=== PATIENT | male | born 1960 | race Caucasian/White ===

== ENCOUNTER → 2021-09-17 13:51 | Outpatient (BNVA) | payer OTHER, SELFPAY | PROVIDERS: Visit Provider Urology | DX: N32.0 Bladder-neck obstruction (principal); N52.9 Male erectile dysfunction, unspecified; N40.1 Benign prostatic hyperplasia with lower urinary tract symptoms; N13.8 Other obstructive and reflux uropathy; R35.1 Nocturia; E78.5 Hyperlipidemia, unspecified; I10 Essential (primary) hypertension; E78.00 Pure hypercholesterolemia, unspecified; Z79.899 Other long term (current) drug therapy | CPT/HCPCS: 99212 ==

== ENCOUNTER 2022-09-15 14:47 | Outpatient (REF) | payer OTHER, SELFPAY ==
[2022-09-15 16:14] LABS: Prostate Specific Antigen 0.33 ng/mL (<0.05-4.0)
== END 2022-09-15 14:48 | disposition home or self-care (01) ==
LOC: HO.LAB 14:47
PROVIDERS: PCP Internal Medicine Geriatric Medicine; Visit Provider Urology
DX: N40.1 Benign prostatic hyperplasia with lower urinary tract symptoms (principal); N13.8 Other obstructive and reflux uropathy; N32.0 Bladder-neck obstruction; Z12.5 Encounter for screening for malignant neoplasm of prostate
CPT/HCPCS: 36415; 84153

== ENCOUNTER → 2022-09-21 13:20 | Outpatient (BNVA) | payer OTHER, SELFPAY | PROVIDERS: Visit Provider Urology | DX: N32.0 Bladder-neck obstruction (principal); N52.9 Male erectile dysfunction, unspecified; Z79.899 Other long term (current) drug therapy | CPT/HCPCS: 51798; 99212 ==

== ENCOUNTER 2023-09-12 12:04 | Outpatient (REF) | payer OTHER, SELFPAY ==
[2023-09-12 14:07] LABS: Anion Gap 11 (12-20); Blood Urea Nitrogen 15 mg/dL (9-16); Calcium 9.3 mg/dL (8.4-10.2); Carbon Dioxide 28 mmol/L (22-29); Chloride 103 mmol/L (96-108); Estimated Glomerular Filt Rate > 60; Glucose Random 104 mg/dL (60-115); Sodium 138 mmol/L (135-145)
[2023-09-18 08:40] LABS: Alphahydroxytriazolam, GCMS Ur NEGATIVE; Alprazolam, GCMS Urine NEGATIVE; Lorazepam GCMS Urine NEGATIVE; Nordiazepam, GCMS Urine NEGATIVE; Oxazepam, GCMS Urine NEGATIVE; Temazepam, GCMS Urine NEGATIVE
[2023-09-18 08:41] LABS: Alphahydroxymidazolam,GCMS Ur NEGATIVE; Flurazepam Metabolite,GCMS Ur NEGATIVE
== END 2023-09-12 12:05 | disposition home or self-care (01) ==
LOC: HO.HHCL 12:04
PROVIDERS: Visit Provider Internal Medicine Geriatric Medicine
DX: F41.9 Anxiety disorder, unspecified (principal); I10 Essential (primary) hypertension
CPT/HCPCS: 36415; 80048; 80346

== ENCOUNTER 2023-09-20 11:29 | Outpatient (AMB) | payer OTHER, SELFPAY ==
--- NOTE | 2023-09-20 11:29 | MHC.OFFVIS ---
Intake Intake Visit Reasons: 1Y PSA(psa?) Intake Note: Sánchez is a 63 year old male who presnets today VIA Telephone for a one year follow up. Allergies No Known Allergies Allergy (Verified 09/20/23 11:31) Medication List - Last Reconciled 09/20/23 by Ho Levy MD albuterol sulfate 90 mcg/actuation 2 puffs PO Q4-6H PRN aspirin 81 mg PO DAILY clonazepam 0.5 - 1 mg PO BID PRN fluticasone propionate 50 mcg/actuation 1 spray intranasal DAILY fluticasone propionate 220 mcg/actuation (Flovent HFA) 1 puff inhalation BID lisinopril 20 mg PO DAILY lisinopril 10 mg PO DAILY metoprolol tartrate 25 mg PO BID mirtazapine 45 mg PO BEDTIME oxycodone 5 mg PO Q4-6H PRN simvastatin 40 mg PO QPM tadalafil 20 mg PO ONCE PRN 30 days umeclidinium-vilanterol 62.5-25 mcg/actuation (Anoro Ellipta) 1 ea PO DAILY zolpidem 10 mg PO BEDTIME HPI HPI Comments History of Present Illness Details Patricia is a very pleasant male. They are seen for the following urologic conditions. - erectile dysfunction - bladder outlet obstruction Telemedicine Evaluation 15 min Consultation [employer] Video attempted Continues to respond well to ED medications Uses 20 mg tadalafil as needed Refill provided Yearly follow-up Erectile dysfunction:? Symptoms have been present for/since?years ago.? Procedure(s)/Diagnosis causing dysfunction include?a proctocolectomy.? Medications include(s)?Viagra 50 mg. Allows full rigid erections adequate for vaginal penetration And orgasm..? Recent labs included?a PSA (prostate-specific antigen) last 2014 0.3 ?01/14 0.8, 09/20 0.3 ? The last follow-up?was a year ago.? Current symptoms include?trouble sustaining an erection, trouble getting an erection BRUNO 25 with viagra.? Severity of the symptoms?is moderate.? Has associated dyslipidemia and hypertension. Denies stresses, and decreased libido, CVA, depression, diabetes, smoking. [facility] Medical History High blood cholesterol Chronic low back pain HTN (hypertension) Hyperlipidemia Bladder outlet obstruction Family history of breast cancer in female Nocturia Weak urinary stream Erectile dysfunction Surgical History History of surgery Review of Systems Const All systems reviewed & are unremarkable except as noted in HPI and below Reports no additional complaints Resp Reports no additional complaints GI Reports no additional complaints Reports as per HPI Musc Reports no additional complaints Physical Exam Telemedicine evaluation Appropriate responses Regular breathing rate and rhythm HEENT Head: Yes normal to inspection Ears: hearing grossly normal bilaterally Eyes General: appearance normal, both eyes and all related structures Neck Neck: Yes normal visual inspection Chest Chest palpation & inspection: normal inspection of the chest Resp Effort & Inspection: normal respiratory effort and able to speak in complete sentences Assessment & Plan Assessment & Plan (1) Erectile dysfunction: Code(s): N52.9 - Male erectile dysfunction, unspecified Qualifiers: Erectile dysfunction type: post-procedural Post-procedural erectile dysfunction type: other Qualified Code(s): N52.39 - Other and unspecified postprocedural erectile dysfunction (2) Bladder outlet obstruction: Code(s): N32.0 - Bladder-neck obstruction Plan Twelve month follow-up Medications: Changed From tadalafil administer approximately 30min before sexual activity; do not use more than 1 dose per 24hrs 10 mg (1/2 x 20 mg) PO ONCE PRN 30 tabs 2RF sexual activity 30 days N52.9 - Male erectile dysfunction, unspecified To tadalafil administer approximately 30min before sexual activity; do not use more than 1 dose per 24hrs 20 mg PO ONCE PRN 30 tabs 1RF sexual activity 30 days N52.9 - Male erectile dysfunction, unspecified Patient Instructions: Imaging studies, laboratory and physical exam results were discussed and reviewed in detail. No major barriers to patient understanding were identified. An opportunity to ask questions regarding the treatment plan was provided. All questions were answered. The patient expressed understanding and agreement with the above treatment plan. The patient is aware they should contact our office by phone for worsening of their current condition or the appearance of new urologic symptoms. Compliance is encouraged with any medications and followup testing that is ordered. It is a privilege to participate in the urologic care of your patient. If you have any questions or concerns regarding treatment for the above conditions, or other urologic issues, please do not hesitate to contact me. The office telephone contact is [phone]. This note is constructed using voice recognition software. While every effort has been made to ensure accuracy associate professor of theology errors may have been included. Yours sincerely, Dr Ho Levy MD, [facility] - Urology Providers of Expert, Compassionate Care for the Genitourinary System Telehealth Telehealth Location of provider rendering services: practice address Location of patient: address on file Patient Identification confirmed using: Name, : Yes Telehealth method: video Patient verbally consented to treatment: Yes Patient verbally consented to billing insurance company: Yes Patient informed of any privacy concerns related to visit: Yes Coding Level of Care Code Tele Est Pt Level 4 (09522) Diagnoses Other post-procedural erectile dysfunction N52.39 Erectile dysfunction type: post-procedural Post-procedural erectile dysfunction type: other Bladder outlet obstruction N32.0
== END 2023-09-20 11:55 | disposition home or self-care (01) ==
LOC: HO.HUSH 11:29
PROVIDERS: Visit Provider Urology
DX: N52.39 Other and unspecified postprocedural erectile dysfunction (principal); N32.0 Bladder-neck obstruction
CPT/HCPCS: 99213

== ENCOUNTER → 2023-09-20 11:29 | Outpatient (BNVA) | payer OTHER, SELFPAY | PROVIDERS: Visit Provider Urology ==

== ENCOUNTER 2023-12-22 08:56 | Outpatient (REF) | payer OTHER, SELFPAY ==
[2023-12-22 12:08] LABS: Alanine Aminotransferase 13 U/L (0-40); Albumin Level 4.4 g/dL (3.5-5.0); Alkaline Phosphatase 79 U/L (39-117); Anion Gap 14 (12-20); Aspartate Amino Transferase 24 U/L (5-37); Bilirubin Total 1.4 mg/dL (0.0-1.0); Blood Urea Nitrogen 15 mg/dL (9-16); Calcium 9.8 mg/dL (8.4-10.2); Carbon Dioxide 28 mmol/L (22-29); Chloride 105 mmol/L (96-108); Cholesterol 165 mg/dL (<200); Estimated Glomerular Filt Rate > 60; Glucose Random 95 mg/dL (60-115); HDL Cholesterol 51 mg/dL (>40); LDL Cholesterol Calculated 102 mg/dL (<100); Potassium 4.4 mmol/L (3.3-5.1); Sodium 143 mmol/L (135-145); Triglycerides 63 mg/dL (<150)
== END 2023-12-22 08:57 | disposition home or self-care (01) ==
LOC: HO.HHCL 08:56
PROVIDERS: Visit Provider Internal Medicine Geriatric Medicine
DX: Z79.899 Other long term (current) drug therapy (principal)
CPT/HCPCS: 36415; 80053; 80061

== ENCOUNTER 2024-02-29 12:10 | Outpatient (REF) | payer OTHER, SELFPAY ==
[2024-02-29 13:03] LABS: MANUAL DIFF FLAG NO
[2024-02-29 13:22] LABS: Basophils Percent Auto 0.4 % (0-2); Eosinophils Absolute Auto 0.1 X10*3/uL (0.0-0.4); Eosinophils Percent Auto 2.1 % (0-4); Hematocrit 42.8 % (42.0-52.0); Hemoglobin 14.5 g/dl (14.0-18.0); Imm Gran Abs Auto 0.01 X10*3/uL (0.00-0.03); Imm Gran Pct Auto 0.1 % (0.0-0.4); Lymphocytes Absolute Auto 1.5 X10*3/uL (1.2-4.9); Lymphocytes Percent Auto 21.8 % (20-40); Mean Corpuscular HGB Conc 33.9 g/dl (31.0-36.0); Mean Corpuscular Hemoglobin 32.3 pg (27.0-33.0); Mean Corpuscular Volume 95.3 fL (80.0-98.0); Monocytes Absolute Auto 0.5 X10*3/uL (0.1-1.2); Monocytes Percent Auto 7.5 % (2-11); Neutrophils Absolute Auto 4.6 x10*3/uL (2.0-8.3); Neutrophils Percent Auto 68.1 % (45-73); Platelet Count 326 X10*3/uL (160-400); Red Blood Count 4.49 X10*6/uL (4.60-5.80); Red Cell Distribution Width 11.3 % (11.0-16.0); White Blood Count 6.8 X10*3/uL (4.8-10.8)
== END 2024-02-29 12:11 | disposition home or self-care (01) ==
LOC: HO.HHCL 12:10
PROVIDERS: Visit Provider Internal Medicine
DX: S82.892A Other fracture of left lower leg, initial encounter for closed fracture (principal)
CPT/HCPCS: 36415; 85025

== ENCOUNTER 2024-07-22 10:00 | Outpatient (RCR) | payer OTHER, SELFPAY | END 2024-11-27 09:36 | disposition home or self-care (01) | LOC: HO.PTCHIC 10:00 | PROVIDERS: PCP Internal Medicine Geriatric Medicine; Visit Provider Internal Medicine Geriatric Medicine | DX: M25.572 Pain in left ankle and joints of left foot (principal); Z87.81 Personal history of (healed) traumatic fracture | CPT/HCPCS: 97110; 97112; 97162 ==

== ENCOUNTER → 2024-12-06 13:10 | Outpatient (AMB) | payer OTHER, SELFPAY | END | disposition home or self-care (01) | PROVIDERS: PCP Internal Medicine Geriatric Medicine; Visit Provider Urology | CPT/HCPCS: 99214 ==

== ENCOUNTER → 2024-12-06 13:10 | Outpatient (BNVA) | payer OTHER, SELFPAY | PROVIDERS: PCP Internal Medicine Geriatric Medicine; Visit Provider Urology | DX: N52.39 Other and unspecified postprocedural erectile dysfunction (principal); N32.0 Bladder-neck obstruction | CPT/HCPCS: 99212 ==

== ENCOUNTER 2025-03-07 13:09 | Outpatient (AMB) | payer OTHER, SELFPAY ==
--- NOTE | 2025-03-07 13:10 | MHC.OFFVIS ---
Intake Visit Reasons: 3m Intake Note: Patient is present for 3M F/U Urology Medication:TADALAFIL Antibiotic Allergy:NONE Blood Thinner:ASPIRIN Sub Assembly Team Worker Required: No Allergies No Known Allergies Allergy (Verified 03/07/25 13:10) HPI Comments Details: Patricia is a very pleasant male. They are seen for the following urologic conditions. - erectile dysfunction - bladder outlet obstruction Telemedicine Evaluation 15 min Consultation [employer] Video Follow-up from three-month trial of daily tadalafil Significant improvement in erectile function Like to continue daily medication with on demand Prescriptions provided Medication also proved helpful with bladder stabilization 12 month follow-up office Erectile dysfunction:? Symptoms have been present for/since?years ago.? Procedure(s)/Diagnosis causing dysfunction include?a proctocolectomy.? Medications include(s)?Viagra 50 mg. Allows full rigid erections adequate for vaginal penetration And orgasm..? Recent labs included?a PSA (prostate-specific antigen) last 2014 0.3 ?- 01/14 0.8, 09/20 0.3 ? The last follow-up?was a year ago.? Current symptoms include?trouble sustaining an erection, trouble getting an erection BRUNO 25 with viagra.? Severity of the symptoms?is moderate.? Has associated dyslipidemia and hypertension. Denies stresses, and decreased libido, CVA, depression, diabetes, smoking. [facility] Medical History High blood cholesterol Chronic low back pain HTN (hypertension) Hyperlipidemia Bladder outlet obstruction Family history of breast cancer in female Nocturia Weak urinary stream Erectile dysfunction Surgical History History of surgery Review of Systems Const All systems reviewed & are unremarkable except as noted in HPI and below Reports no additional complaints Resp Reports no additional complaints GI Reports no additional complaints Reports as per HPI Musc Reports no additional complaints Physical Exam Telemedicine evaluation Appropriate responses Regular breathing rate and rhythm HEENT Head: Yes normal to inspection Ears: hearing grossly normal bilaterally Eyes General: appearance normal, both eyes and all related structures Neck Neck: Yes normal visual inspection Chest Chest palpation & inspection: normal inspection of the chest Resp Effort & Inspection: normal respiratory effort and able to speak in complete sentences Telehealth Telehealth Location of provider rendering services: practice address Location of patient: address on file Patient Identification confirmed using: Name, : Yes Telehealth method: voice only Patient verbally consented to treatment: Yes Patient verbally consented to billing insurance company: Yes Patient informed of any privacy concerns related to visit: Yes Assessment & Plan Assessment & Plan (1) Erectile dysfunction: Code(s): N52.9 - Male erectile dysfunction, unspecified Category: Medical Qualifiers: Erectile dysfunction type: post-procedural Post-procedural erectile dysfunction type: other Qualified Code(s): N52.39 - Other and unspecified postprocedural erectile dysfunction (2) Bladder outlet obstruction: Code(s): N32.0 - Bladder-neck obstruction Category: Medical Plan Continue PD 5 Medications: Refilled tadalafil 5 mg PO DAILY 90 days 90 tabs 3RF Bladder instability N32.0 - Bladder-neck obstruction tadalafil administer approximately 30min before sexual activity; do not use more than 1 dose per 24hrs 20 mg PO ONCE 30 days PRN 30 tabs 1RF sexual activity N52.9 - Male erectile dysfunction, unspecified Patient Instructions: This note is constructed using voice recognition software. While every effort has been made to ensure accuracy clinical social worker errors may have been included. Imaging studies, laboratory and physical exam results were discussed and reviewed in detail. No major barriers to patient understanding were identified. An opportunity to ask questions regarding the treatment plan was provided. All questions were answered. The patient expressed understanding and agreement with the above treatment plan. The patient is aware they should contact our office by phone for worsening of their current condition or the appearance of new urologic symptoms. Compliance is encouraged with any medications and followup testing that is ordered. It is a privilege to participate in the urologic care of your patient. If you have any questions or concerns regarding treatment for the above conditions, or other urologic issues, please do not hesitate to contact me. The office telephone contact is [phone]. Sincerely, Dr Ho Levy MD, [facility] - Urology Compassionate Specialist Care for the Genitourinary System Coding Level of Care Code Tele Est Pt Level 3 (28453) Diagnoses Other post-procedural erectile dysfunction N52.39 Erectile dysfunction type: post-procedural Post-procedural erectile dysfunction type: other Bladder outlet obstruction N32.0
--- OUTSIDE RECORDS SUMMARY | 2025-03-07 13:13 | XMS_ITS | Referral Summary ---
Author Organization [facility] Address [address] [place] [address] Care Team Providers Care Courtesy Van Driver Name Role Phone Name, Leodan Primary Care Provider [phone] Allergies No known active allergies Medications clonazePAM (KlonoPIN) 1 mg tablet 08/21/2023 Active zolpidem (AMBIEN) 10 mg tablet 08/21/2023 Active cholecalciferol (VITAMIN D3) 2,000 unit tablet 50 mcg. 06/28/2023 Active aspirin 81 mg EC tablet 08/12/2023 Active oxyCODONE IR (ROXICODONE) 5 mg tablet 08/10/2023 Active fluticasone propionate (FLONASE) 50 mcg/actuation nasal spray 08/12/2023 Active lisinopriL (PRINIVIL,ZESTRI L) 20 mg tablet 08/12/2023 Act jhoana albuterol (PROAIR HFA,VENTOLIN HFA) 90 mcg inhaler SMARTSI Puff(s) By Mouth Every 4-6 Hours PRN 06/29/2023 Active metoprolol tartrate (LOPRESSOR) 25 mg tablet SMARTSI Tablet(s) By Mouth Twice Daily 07/06/2023 Active sildenafiL (VIAGRA) 100 mg tablet 100 mg. 05/12/2023 Active simvastatin (ZOCOR) 40 mg tablet 08/12/2023 Active terbinafine (LamiSIL) 250 mg tablet 03/06/2023 Active mirtazapine (REMERON) 45 mg tablet SMARTSI Tablet(s) By Mouth Every Night 02/01/2023 Active simvastatin 20 mg/5 mL (4 mg/mL) suspension Take by mouth. 01/20/2023 Active Social History Tobacco Use Types Packs/Day Years Used Date Smoking Tobacco: Never Assessed Sex and Gender Information Value Date Recorded Sex Assigned at Not on file Legal Sex Male 3:46 PM EDT Gender Identity Not on file Sexual Orientation Not on file Last Filed Vital Signs Vital Sign Reading Time Taken Comments Blood Pressure 112/69 08/22/2023 1:09 PM EDT Pulse 60 08/22/2023 1:09 PM EDT Temperature - - Respiratory Rate - - Oxygen Saturation - - Inhaled Oxygen Concentration - - Weight - - Height - - Body Mass Index - - Plan of Treatment Not on file Insurance [facility] Member Subscriber Plan / Payer (Ef fective 2019-Present) Name:Sánchez Greer Relation to Subscriber:Self Name:Sánchez Greer Payer ID:[id number] Group ID:Not on file Type:Not on file Address: [address] [place] [address] [facility] Care Teams Courtesy Van Driver Relationship Specialty Start Date End Date Name, Ledoan [address] [place] [id number] PCP - General Internal Medicine 08/22/23
--- OUTSIDE RECORDS SUMMARY | 2025-03-07 13:13 | XMS_ITS | Encounter Summary ---
Author Organization [employer] Address [address] [facility] [address] [place] [address] Care Team Providers Care Wallpaper Inspector And Shipper Name Role Phone Name, Leodan CARBAJAL Primary Care Provider [phone] Encounter Details Date Type Department Care Team (Late st Contact Info) Description 10/19/2022 Orders Only [facility] [address] [place] [id number] Mehnaz Arenas LPN Social History Tobacco Use Types Packs/Day Years Used Date Smoking Tobacco: Never Assessed Sex and Gender Information Value Date Recorded Sex Assigned at Male 08/29/2022 10:29 AM EDT Legal Sex Male 10:29 AM EDT Gender Identity Male 08/29/2022 10:29 AM EDT Sexual Orientation Straight 08/29/2022 10 :29 AM EDT documented as of this encounter Plan of Treatment Upcoming Encounters Date Type Department Care Team (Late st Contact Info) Description 03/20/2025 2:00 PM EDT Clinical Support [facility] MEDICINE [address] [place] [id number] Radha Em RN 04/16/2025 11:30 AM EDT Office Visit [facility] MEDICINE [address] [place] [phone] Leodan Irwin MD [address] [place] [place] [phone] documented as of this encounter Visit Diagnoses Not on filedocumented in this encounter Care Teams Wallpaper Inspector And Shipper Relationship Specialty Start Date End Date Leodan Irwin MD [address] [place] [phone] PCP - General Family Medicine 10/30/18 documented as of this encounter
--- OUTSIDE RECORDS SUMMARY | 2025-03-07 13:13 | XMS_ITS | Clinical Summary ---
Author Organization [facility] [place] [address] Phone Care Team Providers Care Infrastructure Project Manager Name Role Phone Name, Leodan CARBAJAL Primary Care Provider [phone] Surgical History Surgery Date Site/Laterality Comments OTHER SURGICAL HISTORY PROCEDURE: ---- OTHER ----; COMMENT: partial colectomy 2008 HERNIA REPAIR 08/30/2013 PROCEDURE: HISTORICAL HERNIA REPAIR/RISSA Family History Relation Name Status Comments Mother (Age 72) colon canc er Social History Tobacco Use Types Packs/Day Years Used Date Smoking Tobacco: Former Alcohol Use Standard Drinks/Week Comments No 0 (1 standard drink = 0.6 oz pur e alcohol) Sex and Gender Information Value Date Recorded Sex Assigned at Not on file Legal Sex Male 5:17 AM EST Gender Identity Not on file Sexual Orientation Not on file Obstetrics History Plan of Treatment Health Maintenance Due Date Last Done Comments DTaP,Tdap,and Td Vaccines (1 - Tdap) 1979 Zoster Vaccines (1 of 2) 2010 Pneumococcal Vaccine: 50+ Years (2 of 2 - PCV) 08/21/2015 08/21/2014 Pneumococcal Vaccine: Pediatrics (0 to 5 Years) and At-Risk Patients (6 to 64 Years) (2 of 2 - PCV) 08/21/2015 08/21/2014 RSV Immunization Adult Patients (1 - Risk 60-74 years 1-dose series) 2020 Cholesterol Screening (Lipid Panel) 05/21/2024 Colorectal Cancer Screening: Stool Based Tests (FOBT/FIT) 05/21/2024 Depression Screening 05/21/2024 HIV Screening 05/21/2024 Hepatitis C Screening 05/21/2024 Hypertension/CHF/CAD Annual BMP Blood Test 05/21/2024 Social Influencers of Health Screening 05/21/2024 COVID-19 Vaccine (2023-2 5 season) 2024 Influenza Vaccine (Season Ended) 2025 07/27/2015, 08/21/2014, 08/08/2013 HIB Vaccines Aged Out No longer eligi ble based on patient's age to complete this topic HPV Vaccines Aged Out No longer eligi ble based on patient's age to complete this topic Hepatitis A Vaccines Aged Out No long er eligible based on patient's age to complete this topic Hepatitis B Vaccines Aged Out No long er eligible based on patient's age to complete this topic IPV Vaccines Aged Out No longer eligi ble based on patient's age to complete this topic MMR Vaccines Aged Out No longer eligi ble based on patient's age to complete this topic Meningococcal ACWY Vaccine Aged Out N o longer eligible based on patient's age to complete this topic Meningococcal B Vaccine Aged Out No l onger eligible based on patient's age to complete this topic RSV Immunization Patients Under 20 months Aged Out No longer eligible b ased on patient's age to complete this topic Varicella Vaccines Aged Out No longer eligible based on patient's age to complete this topic Care Teams Infrastructure Project Manager Relationship Specialty Start Date End Date Name, MD Leodan [address] [place], [place] PCP - General Internal Medicine 01/11/13
--- OUTSIDE RECORDS SUMMARY | 2025-03-07 13:13 | XMS_ITS | Encounter Summary ---
Author Organization [employer] Address [address] [facility] 7t [place] [address] Care Team Providers Care Services Clerk Name Role Phone Name, Leodan CARBAJAL Primary Care Provider [phone] Reason for Visit * Reason Comments Med Refill Encounter Details Date Type Department Care Team ([facility] Contact Info) Description 11/22/[address] [facility] MEDICINE [address] [place] [address] [phone] NameLeodan MD [address] [place] [address] [phone] Anxiety Social History Tobacco Use Types Packs/Day Years Used Date Smoking Tobacco: Never Assessed Sex and Gender Information Value Date Recorded Sex Assigned at Male 08/29/2022 10:29 AM EDT Legal Sex Male 10:29 AM EDT Gender Identity Male 08/29/2022 10:29 AM EDT Sexual Orientation Straight 08/29/2022 10 :29 AM EDT COVID-19 Exposure Response Date Recorded In the last 10 days, have yo u been in contact with someone who was confirmed or suspected to have Coronavirus/COVID-19? No / Unsure 11/09/2022 2:40 PM EST documented as of this encounter Plan of Treatment Upcoming Encounters Date Type Department Care Team ([facility] Contact Info) Description 03/20/2025 2:00 PM EDT Clinical Support [facility] MEDICINE [address] [place] [address] [phone] Radha Em RN 04/16/2025 11:30 AM EDT Office Visit [facility] MEDICINE [address] [place] [address] [phone] Name, MD Leodan [address] [place] [address] [phone] documented as of this encounter Visit Diagnoses Diagnosis Anxiety Anxiety state, unspecified documented in this encounter Care Teams Services Clerk Relationship Specialty Start Date End Date Name, MD Leodan [address] [place] [address] PCP - General Family Medicine 10/30/18 documented as of this encounter
--- OUTSIDE RECORDS SUMMARY | 2025-03-07 13:13 | XMS_ITS | Clinical Summary ---
Author Organization [employer] Address [address] [facility] 7t [place] [address] Care Team Providers Care Strain Technician Name Role Phone Name, Leodan CARBAJAL Primary Care Provider [phone] Allergies No known active allergies Medications * This document contains information received from the source organization and may not represent a complete record from that organization. amLODIPine (Norvasc) 2.5 MG tablet Take 2.5 mg by mouth in the morning. Active tadalafil (Cialis) 20 MG tablet TAKE 1/2 TABLET BY MOUTH ONCE NEEDED FOR SEXUAL ACTIVITY. ADMINISTER APPROXIMATELY 30 MINUTES BEFORE SEXUAL ACTIVITY. DO NOT USE MORE [place] 022 Active fluticasone (Flovent) 220 MCG/ACT inhaler Inhale 1 puff every 12 (twelve) hours. 022 Active zolpidem (Ambien) 10 MG tabletIndicat ions:Primary insomnia TAKE 1 TABLET BY MOUTH AT BEDTIME 28 tablet 023 Active clonazePAM (KlonoPIN) 1 MG tabletIndicat ions:Anxiety TAKE 1 TABLET(1 MG) BY MOUTH IN THE MORNING AND AT BEDTIME NEEDED FOR ANXIETY 56 tablet 023 Active mirtazapine (Remeron) 30 MG tablet Take 1.5 tablets by mouth at bedtime. 024 Active polyethylene glycol, PEG, 3350 (Miralax) 17 g packet Take 17 g by mouth if needed at bedtime (constipation). 024 Active docusate sodium (Colace) 100 MG capsule Take 1 capsule (100 mg) by mouth 2 times daily. 180 capsule 3 024 Active Acetaminophen Extra Strength 500 MG tablet Take 2 tablets by mouth every 8 (eight) hours. 90 tablet 024 Active metoprolol tartrate (Lopressor) 25 MG tablet TAKE 1 TABLET BY MOUTH TWICE DAILY 180 tablet 3 024 Active Aspirin Low Dose 81 MG EC tablet TAKE 1 TABLET BY MOUTH EVERY DAY 90 tablet 3 024 Active naloxone (Narcan) 4 mg/0.1 mL nasal sprayIndicati ons:Chronic pain syndrome Administer 1 spray (4 mg) into affected nostril(s) if needed for opioid reversal. May repeat every 2-3 minutes if needed, alternating nostrils, until medical assistance becomes available. 2 each 3 024 2024 Active brimonidine (AlphaGAN) 0.2 % ophthalmic solution INSTIL 1 DROP IN LEFT EYE TWICE DAILY 12 HOURS APART Active lisinopril 20 MG tablet TAKE 1 TABLET(20 MG) BY MOUTH IN THE MORNING 90 tablet 1 025 Active albuterol 108 (90 Base) MCG/ACT inhaler INHALE 2 PUFFS BY MOUTH EVERY 4 TO 6 HOURS NEEDED 6.7 g 2 025 Active fluticasone (Flonase) 50 MCG/ACT nasal spray INSTILL 1 SPRAY IN EACH NOSTRIL EVERY DAY 48 g 025 Active simvastatin (Zocor) 40 MG tabletIndicat ions:Hypercho lesterolemia TAKE 1 TABLET(40 MG) BY MOUTH IN THE EVENING 90 tablet 1 025 Active oxyCODONE (Roxicodone) 5 MG immediate release tabletIndicat ions:Chronic pain syndrome Take 1 tablet (5 mg) by mouth See administration instructions for 28 days. Take one tablet, by mouth, every 4-6 hours, as needed for severe pain Do not start before February 21, 2025. 168 tablet 025 2024 Active simvastatin (Zocor) 40 MG tabletIndicat ions:Hypercho lesterolemia TAKE 1 TABLET(40 MG) BY MOUTH IN THE EVENING 90 tablet 1 024 2024 Discontinued oxyCODONE (Roxicodone) 5 MG immediate release tabletIndicat ions:Chronic pain syndrome Take 1 tablet (5 mg) by mouth See administration instructions for 28 days. Take one tablet, by mouth, every 4-6 hours, as needed for severe pain Do not start before January 24, 2025. 168 tablet 025 2024 Discontinued(R eorder (will not trigger notification to Pharmacy)) Active Problems Problem Noted Date Diagnosed Date Other specified glaucoma 12/02/2024 Closed fracture of left ankle 02/29/2024 Assessment & Plan (03/04/2024 6:12 PM EDT): S/p ORIF, doing well Continue mobilization w sugar cast and fu w orthopedics on 03/04 Continue oxycontin up to 2 tablets BID PRN pain only for the next week, continue 1 tablet every 4h (as rx originally by PCP) otherwise. I will call orthopedics office so they will take over prescription for oxycodone for pain if he needs to take more than 6 tablets /day, otherwise he will continue his regular oxycodone Rx as per PCP, max 6 tabs daily. PDMP reviewed and last refill of oxycontin 5mg was on 02/22. Next refill will be on 03/16/24 (as opposed to 03/22)as patient took 3 extra oxycodone per day for POP pain. We will contact pt once we discussed case w orthopedics. Pt is aware that he can't exceed more than 2 wks of increased oxycontin dose unless ordered by orthopedics. Both patient and daughter agreed with POC. Ambulation w crutches as needed only, try to keep leg elevated as much as possible Petechiae 02/29/2024 Assessment & Plan (02/29/2024 1:58 PM EDT): On Left LE, likely related to aspirin use for DVT prevention Check CBC and DC aspirin only if significantly muscle sarcopenia, will call pt with results. I discuss w/ him the possibility of switching to Low MWH if needed, will fu w orthopedics PRN Episode of recurrent major depressive disorder 0 07/13/2023 COLETTE (generalized anxiety disorder) 07/13/2023 Assessment & Plan (07/28/2023 1:04 PM EDT): Patient with generalized anxiety disorder symptoms. No SI or HI risk. Reason for follow-up BE is to assess symptoms and referral status. Chronic medical problems and housing instability lead to increase of symptoms. The referral for OP placed on 07/14 with [facility] went through. Patient completed the intake process and is now connected with long -term services. Clinician recommended continuing breathing techniques, positive thinking and gratefulness into daily routine. At this time Sánchez Wood meets criteria for Visit Diagnoses: Problem List Items Addressed This Visit Other COLETTE (generalized anxiety disorder) Patient ready to address current needs Yes Strengths include strong spirituality and angelita PLAN: 1. Follow up with [facility]: Not recommended for follow-up 2. Patient goal is to feel less anxious 3. Behavioral Recommendations a. Continue medication prescribed by provider for anxiety b. Incorporating mindfulness techniques into daily routine c. Engaged in services Assessment & Plan (07/18/2023 9:46 AM EDT): Patient with symptoms of anhedonia, hopelessness, sleep disturbance, fatigued, feelings of guilt, difficulty concentrating, severe anxiety, over-worrying, trouble relaxing, restlessness and irritability. Symptoms occur nearly everyday and have been present for the las two years, indicating a severe impact on social and occupational functioning. Symptoms presented in the context of experiencing chronic medical issues, housing instability and trauma history. Patient will benefit from receiving OP individual therapy and incorporating mindfulness techniques into daily routine. At this time Sánchez Wood meets criteria for Visit Diagnoses: Problem List Items Addressed This Visit Other Episode of recurrent major depressive disorder (CMS/HCC) - Primary Relevant Orders Referral to Behavioral Health COLETTE (generalized anxiety disorder) Patient ready to address current needs Yes Strengths include strong spirituality and angelita. PLAN: 1. Follow up with [facility]: Not recommended for follow-up 2. Patient goal is to feel less anxious. 3. Behavioral Recommendations a. Referral for OP individual therapy b. Continue medication prescribed for anxiety c. Incorporating mindfulness techniques into daily routine. Basal cell carcinoma of face 11/23/2022 Overview (11/21/2023): S/p Mohs micrographic surgery anterior to L ear 07/2023 at [facility] Mild persistent asthma without complication 10/31 Gilbert's syndrome 05/09/2022 Disorder of tendon of shoulder region 11/23/2018 Pain in the coccyx 05/22/2018 Spinal stenosis in cervical region 12/25/2017 Anxiety 09/18/2017 Asthma 12/01/2015 Benign prostatic hyperplasia with lower urinary tract symptoms 12/01/2015 Chronic low back pain 12/01/2015 Degeneration of lumbosacral intervertebral disc 12/01/2015 Essential hypertension 12/01/2015 H/O partial resection of colon 12/01/2015 Hypercholesterolemia 12/01/2015 H/O colon cancer, stage III 04/15/2011 Encounters Date Type Department Care Team Description 02/20/2025 Refill [facility] [address] [place] [address] Name, MD Leodan Chronic pain syndrome 02/06/2025 Refill [facility] [address] [place] [address] Name, MD Leodan Hypercholesterolemia 02/03/2025 Refill [facility] [address] [place] [address] Name, MD Leodan 01/22/2025 Refill [facility] [address] [place] [address] Name, MD Leodan Chronic pain syndrome 01/21/2025 Telephone [facility] [address] [place] [address] Name, MD Leodan telephone call 12/31/2024 Refill [facility] [address] [place] [address] Name, MD Leodan 12/26/2024 Refill [facility] [address] [place] [address] Name, MD Leodan Chronic pain syndrome from Last 3 Months Immunizations Name Administration Dates Next Due DTaP, Unspecified 12/22/2011 Influenza injectable quadriv alent IIV4 with preservative 07/15/2019,07/17/2018,08/09/2017 Influenza injectable quadriv alent preservative free 07/26/2023,07/27/2022,07/23/2020 Influenza, IIV3, injectable 07/27/2015, 4,08/08/2013 Influenza, seasonal, injecta ble, preservative free 11/05/2024,08/18/2017 Moderna Covid-19 Vaccine 12+ 01/26/2021,01/06/20 21 Pfizer Covid-19 Vaccine 12+ 01/26/2021, Pneumococcal Conjugate PCV 20 12/02/2024 Pneumococcal Polysaccharide PPSV23 08/21/2014 Td (adult), unspecified 02/08/2000 Tdap 08/10/2016 Social History Tobacco Use Types Packs/Day Years Used Date Smoking Tobacco: Former Cigarettes Tobacco Cessation:Counseling Given: Not Answered Alcohol Use Standard Drinks/Week Comments Not Currently 0 (1 standard drink = 0.6 oz pur e alcohol) social Alcohol Answer Date Recorded Frequency of Alcohol Consumption Not on file 05/20/2024 Average Number of Drinks Not on file 024 Frequency of Binge Drinking Not on file 04/30 Score 0 05/20/2024 Depression Answer Date Recorded Patient Health Questionnaire-9 Score 0 03/11/2024 Patient Health Questionnaire-9 Score 0 03/11/2024 Last PHQ-9: Questionnaire Data Not on file 0 03/11/2024 Housing Stability Answer Date Recorded What is your housing situation today? I have latrice chavarria 08/21/[address] you li ve. Do you have problems with any of the following? None of the above 08/21/2023 Food Insecurity Answer Date Recorded Within the past 12 months, y ou worried that your food would run out before you got money to buy more: Never True 08/21/2023 Within the past 12 months,th e food you bought just didn't last and you didn't have enough money to get more: Never True Transportation Answer Date Recorded In the past 12 months, has l ack of transportation kept you from medical appts, meetings, work or from getting things needed for daily living? No 08/21/2023 Utilities Answer Date Recorded In the past 12 months, has t he electric, gas, oil or water company threatened to shut off services in your home? No 08/21/2023 Depression Answer Date Recorded Patient Health Questionnaire-2 Score 0 03/11/2024 Sex and Gender Information Value Date Recorded Sex Assigned at Male 08/29/2022 10:29 AM EDT Legal Sex Male 10:29 AM EDT Gender Identity Male 08/29/2022 10:29 AM EDT Sexual Orientation Straight 08/29/2022 10 :29 AM EDT Last Filed Vital Signs Vital Sign Reading Time Taken Comments Blood Pressure 139/85 12/02/2024 3:31 PM EST Pulse 72 12/02/2024 3:31 PM EST Temperature 35.8 ??C (96.5 ??F) 12/02/2024 3:31 PM ES T Respiratory Rate 14 12/02/2024 3:31 PM EST Oxygen Saturation 98% 12/02/2024 3:31 PM EST Inhaled Oxygen Concentration - - Weight 69.8 kg (153 lb 12.8 oz) 12/02/2024 3:31 PM EST Height 165.1 cm (5' 5 ) 12/02/2024 3:31 PM EST Body Mass Index 25.59 12/02/2024 3:31 PM EST Plan of Treatment Upcoming Encounters Date Type Department Care Team (Late st Contact Info) Description 03/20/2025 2:00 PM EDT Clinical Support [facility] [address] [place] [phone] Radha Em RN 04/16/2025 11:30 AM EDT Office Visit [facility] [address] [place] [phone] Name, MD Leodan [address] [place] [address] Health Maintenance Due Date Last Done Comments CT Colonography 1960 FIT DNA/Cologuard 1960 FIT 1960 FOBT 1960 HIV Screening 1960 Sigmoidoscopy 1960 Derm Melanoma Skin Check 02/01/1961 Hepatitis C Screening 1978 Zoster Vaccines (1 of 2) 2010 RSV Patients and Patients Aged 60 years or older (1 - Risk 60-74 years 1-dose series) 2020 COVID-19 Vaccine ( season) 2024 01/26/2021, 01/26/2021, 01/05/2021, Additional history exists SDOH Screening 07/26/2024 07/26/2023 Depression Screening 03/11/2025 03/11/2024, 03/11/20 24 Alcohol/Substance Use Screening 05/20/2025 05/20/2024 Tobacco Screening 12/02/2025 12/02/2024 Colonoscopy 01/20/2026 01/20/2023, 12/29, 06/02/2022 Colorectal Cancer Screening 01/20/2026 DTaP/Tdap/Td Vaccines (3 - Td or Tdap) 08/10/2026 08/10/2016, 12/22/2011, 02/08/2000 Lipid Panel 12/22/2028 12/22/2023, 10/30, 04/28/2022, Additional history exists Influenza Vaccine Completed 11/05/2024, , 07/27/2022, Additional history exists Pneumococcal Vaccine: 50+ Years Completed 12/02/2024, 08/21/2014 HIB Vaccines Aged Out No longer eligi [...] patient's age to complete this topic Meningococcal Vaccine Aged Out No niki stacey eligible based on patient's age to complete this topic RSV under 20 months Aged Out No longe r eligible based on patient's age to complete this topic Rotavirus Vaccines Aged Out No longer eligible based on patient's age to complete this topic Procedures Procedure Name Priority Date/Time Associated Diagnosis Comments LIPID PANEL, STANDARD Routine 12/22/2023 9:00 AM EST On statin therapy COLONOSCOPY Routine 01/20/2023 from Last 3 Months or Most Recently Relevant to Health Maintenance Results * (ABNORMAL) Lipid Panel, Standard (12/22/2023 9:00 AM EST) Triglycerides 63 <150 mg/dL [facility] Comment:Desirable Triglyceri de: less than 150 mg/dLBorderline High Triglyceride 150-199 mg/dLHigh Triglyceride: 200-499 mg/dLVery High Triglyceride: greater than or equal to 5OO mg/dL Cholesterol 165 <200 mg/dL [facility] Comment:Desirable Cholestero l: less than 200 mg/dLBorderline High Cholesterol: 200-239 mg/dLHigh Cholesterol: greater than 239 mg/dL LDL Cholesterol Calculated 102(H) <100 mg/dL [facility] Comment:Desirable LDL: less than 100 mg/dLNear Optimal/Above Optimal LDL: 110- 129 mg/dLBorderline High LDL: 130-159 mg/dLHigh LDL: 160-189 mg/dLVery High LDL: greater than or equal to 190 mg/dL HDL Cholesterol 51 >40 mg/dL [facility] Comment:Desirable HDL: great er than 40 mg/dL Note: This HDL assay may give artificially low results in patients with liver disease. Blood Venous blood specimen / Unknown 12/22/2023 9:00 AM EST 12/22/2023 11:20 AM EST Leodankatya Irwin MD LAB BLOOD ORDERABLES Final Resul t [facility] [address] [place] [phone] * Colonoscopy (01/20/2023) Colonoscopy Normal Normal Comment:repeat in 5yrs due t o Hx Historical Provider HEALTH MAINTENANCE Final Result from Last 3 Months or Most Recently Relevant to Health Maintenance Insurance [facility] CARE < 65 JACINTA ROSALES [id number] [address] [place] [address] [address] [place] [address] [address] [place] [address] Care Teams Strain Technician Relationship Specialty Start Date End Date Name, MD Leodan [address] [place] [address] PCP - General Family Medicine 10/30/18
--- OUTSIDE RECORDS SUMMARY | 2025-03-07 13:13 | XMS_ITS | Clinical Summary ---
Author Organization [facility] Address [address] [place] [address] Care Team Providers Care Take Off Man Name Role Phone Name, Leodan Primary Care Provider [phone] Allergies No known active allergies Medications clonazePAM [...] Mass Index - - Plan of Treatment Health Maintenance Due Date Last Done Comments Cologuard 1960 Colon Cancer Screening 1960 Colonoscopy 1960 FOBT / Fit Test 1960 HIV Screening 1960 Hepatitis C Screening 1960 Sigmoidoscopy 1960 Zoster Vaccines (1 of 2) 2010 Pneumococcal Vaccine: 50+ Years (2 of 2 - PCV) 08/21/2015 08/21/2014 COVID-19 Vaccine ( season) 2024 09/29/2021, 01/26/2021, 01/26/2021, Additional history exists Alcohol/Substance Use Screening 10/30/2024 Depression Screening and Follow-Up 10/30/2024 Social Drivers of Health Annual Screening 10/30/2024 Influenza Vaccine (Season Ended) 2025 07/27/2022, 08/02/2021, 07/15/2019, Additional history exists DTaP,Tdap,and Td Vaccines (3 - Td or Tdap) 08/10/2026 08/10/2016, 12/22/2011, 02/08/2000 RSV Vaccine (60+ years old and patients) (1 - 1-dose 75+ series) 2035 Hepatitis B Vaccines Aged Out No long er eligible based on patient's age to complete this topic Insurance [facility] Member Subscriber Plan / Payer (Ef fective 2019-Present) Name:Sánchez Greer Relation to Subscriber:Self Name:Sánchez Greer Payer ID:[id number] Group ID:Not on file Type:Not on file Address: [address] JACINTA ROSALES [address] [place] [address] [facility] Care Teams Take Off Man Relationship Specialty Start Date End Date Name, Leodan [address] [place] [id number] PCP - General Internal Medicine 08/22/23
--- OUTSIDE RECORDS SUMMARY | 2025-03-07 13:13 | XMS_ITS | Encounter Summary ---
Author Organization [facility] Address [address] [place] [address] [place] [address] Care Team Providers Care Secretary Office Clerk Name Role Phone Name, Leodan CARBAJAL Primary Care Provider [phone] Reason for Visit * Reason Comments Med Refill Encounter Details Date Type Department Care Team (Late st Contact Info) Description 03/06/2023 Refill [facility] [address] [place] [phone] Marj Correa FNP [address] [place] [address] Dept [place] [address] Insomnia, unspecified type Social History Tobacco Use Types Packs/Day Years [...] Description 03/20/2025 2:00 PM EDT Clinical Support [facility] [address] [place] [phone] Radha Em RN 04/16/2025 11:30 AM EDT Office Visit [facility] [address] [place] [phone] Leodan Irwin MD [address] [place] [phone] documented as of this encounter Visit Diagnoses Diagnosis Insomnia, unspecified type documented in this encounter Care Teams Secretary Office Clerk Relationship Specialty Start Date End Date NameLeodan MD [address] [place] [address] PCP - General Family Medicine 10/30/18 documented as of this encounter
--- OUTSIDE RECORDS SUMMARY | 2025-03-07 13:13 | XMS_ITS | Encounter Summary ---
Author Organization [employer] Address [address] [facility] 7t [place] [address] Care Team Providers Care Supervisor Sandblaster Name Role Phone Name, Leodan CARBAJAL Primary Care Provider [phone] Reason for Visit * Reason Onset Date Comments Med Refill 05/16/2024 Encounter Details Date Type Department Care Team ([facility] [place] [facility] Contact Info) Description 05/16/2024 Telephone [facility] [address] [place], [place] [phone] Name, MD Leodan [address] [place] [address] Med Refill Social History Tobacco Use Types Packs/Day Years Used Date Smoking Tobacco: Former Cigarettes Alcohol Use Standard Drinks/Week Comments Not Currently [...] AM EDT documented as of this encounter Miscellaneous Notes * Telephone Encounter - Ariane Meza RN - 05/16/2024 2:04 PM EDT Mass pat checked on 05/16/2024 , last time oxycodone 5 mg immediate release tablet was filled on 04/19/224, qty of 168 for 28 days supply at [facility]. [facility] for approval. * Telephone Encounter - Lizzette Monroy - 05/16/2024 9:41 AM EDT TC from pt requesting medication refill. Medications needing refill : oxyCODONE (Roxicodone) 5 MG immediate release tablet To be sent to: [facility] #[id number] - [place], [place] - [address] [facility] documented in this encounter Plan of Treatment Upcoming Encounters Date Type Department Care Team ([facility] st Contact Info) Description 03/20/2025 2:00 PM EDT Clinical Support [facility] [address] [place] [phone] Radha Em RN 04/16/2025 11:30 AM EDT Office Visit [facility] [address] [place] [address] Name, MD Leodan [address] [place] [address] documented as of this encounter Visit Diagnoses Not on filedocumented in this encounter Additional Health Concerns Assessment Noted Time PHQ-9 Depression Total Score: 0 03/11/20 24 3:12 PM EDT documented as of this encounter Care Teams Supervisor Sandblaster Relationship Specialty Start Date End Date Name, MD Leodan [address] [place] [address] PCP - General Family Medicine 10/30/18 documented as of this encounter
--- OUTSIDE RECORDS SUMMARY | 2025-03-07 13:13 | XMS_ITS | Encounter Summary ---
Author Organization [facility] Address [address] [place] [address] Care Team Providers Care Corporate Tax Manager Name Role Phone Name, Ledoan CARBAJAL Primary Care Provider [phone] Encounter Details Date Type Department Care Team ([facility] st Contact Info) Description 08/15/2024 7:33 AM EDT Hospital Encounter TH HISTORIC ENCOUNTERS EASTERN CONVERSION ONLY Karishma Baker MD [address] [place] [address] Social History Tobacco Use Types Packs/Day Years Used Date Smoking Tobacco: Former Alcohol Use Standard Drinks/Week Comments No 0 (1 standard drink = 0.6 oz pur e alcohol) Sex and Gender Information Value Date Recorded Sex Assigned at Not on file Legal Sex Male 5:17 AM EST Gender Identity Not on file Sexual Orientation Not on file documented as of this encounter Plan of Treatment Not on file documented as of this encounter Visit Diagnoses Not on filedocumented in this encounter Care Teams Corporate Tax Manager Relationship Specialty Start Date End Date Name, MD Leodan [address] [place], [place] PCP - General Internal Medicine 01/11/13 documented as of this encounter
== END 2025-03-07 14:51 | disposition home or self-care (01) ==
LOC: HO.HUSH 13:09
PROVIDERS: PCP Internal Medicine Geriatric Medicine; Visit Provider Urology
DX: N52.39 Other and unspecified postprocedural erectile dysfunction (principal); N32.0 Bladder-neck obstruction
CPT/HCPCS: 99213

== ENCOUNTER → 2025-03-07 13:09 | Outpatient (BNVA) | payer OTHER, SELFPAY | PROVIDERS: PCP Internal Medicine Geriatric Medicine; Visit Provider Urology ==

== ENCOUNTER 2025-04-03 08:01 | Outpatient (REF) | payer OTHER, SELFPAY ==
--- OUTSIDE RECORDS SUMMARY | 2025-04-03 08:07 | XMS_ITS | Encounter Summary ---
Author Organization [facility] Address [address] [place] [address] [place] [address] Care Team Providers Care Bartender Server Name Role Phone Name, Leodan CARBAJAL Primary Care Provider [phone] Reason for Visit * Reason Comments Med Refill Encounter Details Date Type Department Care Team (Late st Contact Info) Description 03/06/[address] [address] Marj Correa FNP [address] [place] [address] Dept [place] [address] Insomnia, unspecified type Social History Tobacco Use [...] Care Team (Late st Contact Info) Description 04/16/2025 11:30 AM EDT Office Visit [address] [address] Leodan Irwin MD [address] [place] [address] 06/23/2025 2:00 PM EDT Clinical Support [address] [address] Radha Em, RN documented as of this encounter Visit Diagnoses Diagnosis Insomnia, unspecified type documented in this encounter Care Teams Bartender Server Relationship Specialty Start Date End Date NameLeodan MD [address] [place] [address] PCP - General Family Medicine 10/30/18 documented as of this encounter
[2025-04-03 11:32] LABS: MANUAL DIFF FLAG NO
[2025-04-03 11:49] LABS: Basophils Percent Auto 0.7 % (0-2); Eosinophils Absolute Auto 0.1 X10*3/uL (0.0-0.4); Eosinophils Percent Auto 1.3 % (0-4); Hemoglobin 15.1 g/dl (14.0-18.0); Imm Gran Abs Auto 0.02 X10*3/uL (0.00-0.03); Imm Gran Pct Auto 0.3 % (0.0-0.4); Lymphocytes Absolute Auto 1.8 X10*3/uL (1.2-4.9); Lymphocytes Percent Auto 29.3 % (20-40); Mean Corpuscular HGB Conc 33.6 g/dl (31.0-36.0); Mean Corpuscular Hemoglobin 31.8 pg (27.0-33.0); Mean Corpuscular Volume 94.7 fL (80.0-98.0); Mean Platelet Volume 11.5 fL (9.4-12.4); Monocytes Absolute Auto 0.4 X10*3/uL (0.1-1.2); Monocytes Percent Auto 7.1 % (2-11); Neutrophils Absolute Auto 3.7 x10*3/uL (2.0-8.3); Neutrophils Percent Auto 61.3 % (45-73); Platelet Count 241 X10*3/uL (160-400); Red Blood Count 4.75 X10*6/uL (4.60-5.80); Red Cell Distribution Width 12.3 % (11.0-16.0)
[2025-04-03 12:17] LABS: Creatinine Urine 120.28 mg/dL; Microalbum/Creatinine Ratio Ur 4.1 ug/mg cr (<30)
[2025-04-03 12:29] LABS: Alanine Aminotransferase 17 U/L (0-40); Albumin Level 4.4 g/dL (3.5-5.0); Alkaline Phosphatase 77 U/L (39-117); Anion Gap 8 (12-20); Aspartate Amino Transferase 34 U/L (5-37); Bilirubin Total 1.4 mg/dL (0.0-1.0); Blood Urea Nitrogen 14 mg/dL (9-16); Calcium 9.8 mg/dL (8.4-10.2); Carbon Dioxide 32 mmol/L (22-29); Chloride 105 mmol/L (96-108); Cholesterol 179 mg/dL (<200); Estimated Glomerular Filt Rate > 60; Glucose Random 98 mg/dL (60-115); HDL Cholesterol 41 mg/dL (>40); LDL Cholesterol Calculated 118 mg/dL (<100); Potassium 4.3 mmol/L (3.3-5.1); Sodium 141 mmol/L (135-145); Total Protein 7.6 g/dL (6.5-8.0); Triglycerides 100 mg/dL (<150)
== END 2025-04-03 08:02 | disposition home or self-care (01) ==
LOC: HO.HHCL 08:01
PROVIDERS: Visit Provider Internal Medicine Geriatric Medicine
DX: I10 Essential (primary) hypertension (principal)
CPT/HCPCS: 36415; 80053; 80061; 82043; 82570; 85025